=== PATIENT | female | born 1950 | race African-American/Black ===

== ENCOUNTER 2021-12-21 13:53 | Inpatient (IN) ==
[2021-12-21] MEDS ORDERED: ACETAMINOPHEN 325 MG TABLET PO PRN (14:29)
[2021-12-21] MEDS ORDERED: ONDANSETRON 4 MG/2 ML VIAL IV PRN (14:29)
[2021-12-21] MEDS ORDERED: DEXTROSE 50% 25 GM/50 ML VIAL IV PRN (14:29)
[2021-12-21] MEDS ORDERED: POTASSIUM CHLORIDE 20 MEQ TABLET PO PRN (14:29)
[2021-12-21] MEDS ORDERED: MAGNESIUM SULF RIDER 4 GM/100 ML PREMIX IV PRN (14:29)
[2021-12-21] MEDS ORDERED: traMADol 50 MG TABLET PO PRN (14:29)
[2021-12-21] MEDS ORDERED: POTASSIUM CHLORIDE RIDER 10 MEQ/100 ML PREMIX IV PRN (14:29)
[2021-12-21] MEDS ORDERED: MAGNESIUM SULF RIDER 2 GM/50 ML PREMIX IV PRN (14:29)
[2021-12-21] MEDS ORDERED: GLUCAGON 1 MG VIAL IM PRN (14:29)
[2021-12-21] MEDS ORDERED: DEXTROSE 10% 250 ML BAG IV PRN (14:44)
[2021-12-21] MEDS: ALBUTEROL/IPRATROPIUM 3 ML NEB RESP TX SCH ×3 (16:10→23:50)
[2021-12-21] MEDS: methylPREDNISolone SOD SUC 40 MG/1 ML VIAL IV SCH (18:13)
[2021-12-21] MEDS: SODIUM CHLORIDE 0.9% 1,000 ML IV SCH (18:13)
[2021-12-21] MEDS: ENOXAPARIN 30 MG/0.3 ML SYRINGE SUBCUT SCH (18:14)
[2021-12-21] MEDS: cefTRIAXone 1,000 MG in SODIUM CHLORIDE 0.9% 100 ML IV SCH (18:15)
[2021-12-21] MEDS: PANTOPRAZOLE 40 MG TABLET PO SCH (18:16)
[2021-12-21] MEDS: INSULIN REGULAR 100 UNIT/ML SUBCUT SCH ×2 (18:16→22:08)
[2021-12-21] MEDS: AZITHROMYCIN INJ 500 MG in SODIUM CHLORIDE 0.9% 250 ML IV SCH (19:02)
[2021-12-21] MEDS: DOCUSATE SODIUM 100 MG CAPSULE PO SCH (22:09)
[2021-12-22] MEDS: ALBUTEROL/IPRATROPIUM 3 ML NEB RESP TX SCH ×6 (03:35→23:56)
[2021-12-22] MEDS: SODIUM CHLORIDE 0.9% 1,000 ML IV SCH ×3 (04:46→14:06)
[2021-12-22] MEDS: methylPREDNISolone SOD SUC 40 MG/1 ML VIAL IV SCH ×2 (04:47→16:39)
[2021-12-22 05:08] LABS: Basophils % 0.1 % (0.0-0.8); Hematocrit 29.4 VOL% (35.7-47.0); Hemoglobin 9.3 GM/DL (12.0-16.0); Immature Granulocytes % 0.6 %; Immature Granulocytes Absolute 0.05 #; Lymphocytes # 0.6 10*3/uL (1.4-4.0); Lymphocytes % 7.3 % (21.3-54.2); Mean Corpuscular HGB Conc 31.6 GM/DL (32-36); Mean Corpuscular Volume 91.3 FL (87-102); Mean Platelet Volume 11.3 FL (9.6-12.0); Monocytes # 0.2 10*3/uL (0.11-0.8); Monocytes % 2.3 % (1.7-12.7); Neutrophils % 89.7 % (38.7-73.9); Platelet Count 172 T/CUMM (130-400); Red Blood Count 3.22 MC/CUMM (3.8-5.5); Red Cell Distribution Width 13.2 % (9.3-17.3); White Blood Count 8.3 T/CUMM (4-12)
[2021-12-22 05:30] LABS: Albumin 2.3 G/DL (3.4-5.0); Bilirubin,Total 0.6 MG/DL (0.20-1.00); Calcium 8.1 MG/DL (8.5-10.1); Osmolality,Calculated 289.5 MOS/KG (273-304); Potassium 3.8 MMOL/L (3.5-5.1); Total Protein 6.6 G/DL (6.4-8.2)
[2021-12-22] MEDS: DOCUSATE SODIUM 100 MG CAPSULE PO SCH ×2 (09:39→20:44)
[2021-12-22] MEDS: PANTOPRAZOLE 40 MG TABLET PO SCH (09:39)
[2021-12-22] MEDS: INSULIN REGULAR 100 UNIT/ML SUBCUT SCH ×4 (09:41→20:41)
[2021-12-22] MEDS ORDERED: BENZONATATE 100 MG CAPSULE PO PRN (12:37)
[2021-12-22] MEDS ORDERED: glipiZIDE 10 MG TABLET PO SCH (13:00)
[2021-12-22] MEDS: CETIRIZINE 10 MG TABLET PO SCH (14:04)
[2021-12-22] MEDS: cefTRIAXone 1,000 MG in SODIUM CHLORIDE 0.9% 100 ML IV SCH (16:38)
[2021-12-22] MEDS: ENOXAPARIN 30 MG/0.3 ML SYRINGE SUBCUT SCH (16:40)
[2021-12-22] MEDS: AZITHROMYCIN INJ 500 MG in SODIUM CHLORIDE 0.9% 250 ML IV SCH (18:20)
[2021-12-22] MEDS ORDERED: GLUCAGON 1 MG VIAL IM PRN (23:20)
[2021-12-22] MEDS ORDERED: DEXTROSE 50% 25 GM/50 ML VIAL IV PRN (23:20)
[2021-12-22] MEDS ORDERED: INSULIN GLARGINE 100 UNIT/ML SUBCUT SCH (23:30)
[2021-12-23] MEDS: hydrALAZINE 20 MG/1 ML VIAL IV PRN ×2 (00:24→12:51)
[2021-12-23] MEDS: SODIUM CHLORIDE 0.9% 1,000 ML IV SCH ×3 (02:01→15:12)
[2021-12-23] MEDS: ALBUTEROL/IPRATROPIUM 3 ML NEB RESP TX SCH ×6 (02:52→23:20)
[2021-12-23] MEDS ORDERED: INSULIN REGULAR 100 UNIT/ML SUBCUT STA (04:41)
[2021-12-23] MEDS: methylPREDNISolone SOD SUC 40 MG/1 ML VIAL IV SCH ×2 (05:02→15:14)
[2021-12-23 05:13] LABS: Basophils % 0.1 % (0.0-0.8); Hematocrit 28.8 VOL% (35.7-47.0); Hemoglobin 9.6 GM/DL (12.0-16.0); Immature Granulocytes % 1.1 %; Immature Granulocytes Absolute 0.15 #; Lymphocytes # 1.1 10*3/uL (1.4-4.0); Lymphocytes % 8.4 % (21.3-54.2); Mean Corpuscular HGB Conc 33.3 GM/DL (32-36); Mean Corpuscular Volume 88.6 FL (87-102); Mean Platelet Volume 11.4 FL (9.6-12.0); Monocytes # 1.1 10*3/uL (0.11-0.8); Neutrophils % 82.4 % (38.7-73.9); Platelet Count 247 T/CUMM (130-400); Red Blood Count 3.25 MC/CUMM (3.8-5.5); Red Cell Distribution Width 13.4 % (9.3-17.3); White Blood Count 13.6 T/CUMM (4-12)
[2021-12-23 05:33] LABS: Alanine Aminotransferase 108 U/L (13-56); Albumin 2.4 G/DL (3.4-5.0); Alkaline Phosphatase 134 U/L (45-117); Aspartate Amino Transferase 56 U/L (0-37); Bilirubin,Indirect 0.3 MG/DL (0.0-1.0); Bilirubin,Total < 0.39 MG/DL (0.20-1.00); Blood Urea Nitrogen 32 MG/DL (7-18); Calcium 8.5 MG/DL (8.5-10.1); Carbon Dioxide 20 MMOL/L (21-32); Chloride 105 MMOL/L (98-107); Glucose 486 MG/DL (74-106); Osmolality,Calculated 292.5 MOS/KG (273-304); Potassium 3.8 MMOL/L (3.5-5.1); Sodium 132 MMOL/L (136-145); Total Protein 6.5 G/DL (6.4-8.2)
[2021-12-23 06:11] LABS: Hepatitis B Core IgM Quant 0.08 Index; Hepatitis B Surface Ag Quant < 0.10 Index; Hepatitis B Surface Ag Result Non-Reactive (NonReactive); Hepatitis C Virus Ab Quant 0.06 Index; Hepatitis C Virus Ab Result Non-Reactive (NonReactive)
[2021-12-23] MEDS: INSULIN GLARGINE 100 UNIT/ML SUBCUT SCH ×2 (09:11→20:24)
[2021-12-23] MEDS: INSULIN REGULAR 100 UNIT/ML SUBCUT SCH ×4 (09:11→21:00)
[2021-12-23] MEDS: DOCUSATE SODIUM 100 MG CAPSULE PO SCH ×2 (09:13→20:22)
[2021-12-23] MEDS: CETIRIZINE 10 MG TABLET PO SCH (09:13)
[2021-12-23] MEDS: PANTOPRAZOLE 40 MG TABLET PO SCH (09:13)
[2021-12-23] MEDS: glipiZIDE 10 MG TABLET PO SCH ×2 (09:13→20:22)
[2021-12-23] MEDS: LOSARTAN 50 MG TABLET PO SCH (09:42)
[2021-12-23] MEDS: ENOXAPARIN 30 MG/0.3 ML SYRINGE SUBCUT SCH (15:12)
[2021-12-23] MEDS: cefTRIAXone 1,000 MG in SODIUM CHLORIDE 0.9% 100 ML IV SCH (15:13)
[2021-12-23] MEDS: AZITHROMYCIN INJ 500 MG in SODIUM CHLORIDE 0.9% 250 ML IV SCH (16:07)
[2021-12-24] MEDS: ALBUTEROL/IPRATROPIUM 3 ML NEB RESP TX SCH ×6 (02:42→23:07)
[2021-12-24] MEDS: SODIUM CHLORIDE 0.9% 1,000 ML IV SCH ×2 (03:06→17:05)
[2021-12-24] MEDS: methylPREDNISolone SOD SUC 40 MG/1 ML VIAL IV SCH ×2 (03:06→15:55)
[2021-12-24] MEDS: INSULIN REGULAR 100 UNIT/ML SUBCUT SCH ×4 (08:42→20:03)
[2021-12-24] MEDS: INSULIN GLARGINE 100 UNIT/ML SUBCUT SCH ×2 (08:43→22:40)
[2021-12-24] MEDS: LOSARTAN 50 MG TABLET PO SCH (08:44)
[2021-12-24] MEDS: CETIRIZINE 10 MG TABLET PO SCH (08:44)
[2021-12-24] MEDS: DOCUSATE SODIUM 100 MG CAPSULE PO SCH ×2 (08:44→22:40)
[2021-12-24] MEDS: glipiZIDE 10 MG TABLET PO SCH ×2 (08:45→22:40)
[2021-12-24] MEDS: PANTOPRAZOLE 40 MG TABLET PO SCH (08:45)
[2021-12-24] MEDS ORDERED: guaiFENesin/CODEINE 5 ML LIQUID PO PRN (10:23)
[2021-12-24] MEDS: ENOXAPARIN 30 MG/0.3 ML SYRINGE SUBCUT SCH (15:58)
[2021-12-24] MEDS: cefTRIAXone 1,000 MG in SODIUM CHLORIDE 0.9% 100 ML IV SCH (15:59)
[2021-12-24] MEDS: AZITHROMYCIN INJ 500 MG in SODIUM CHLORIDE 0.9% 250 ML IV SCH (17:28)
[2021-12-25] MEDS: ALBUTEROL/IPRATROPIUM 3 ML NEB RESP TX SCH ×5 (00:07→14:30)
[2021-12-25] MEDS: methylPREDNISolone SOD SUC 40 MG/1 ML VIAL IV SCH (04:21)
[2021-12-25 05:38] LABS: Basophils # 0.1 10*3/uL (0.0-0.2); Basophils % 0.6 % (0.0-0.8); Eosinophils # 0.1 10*3/uL (0.0-0.87); Eosinophils % 0.7 % (0.00-10.9); Hematocrit 32.1 VOL% (35.7-47.0); Hemoglobin 10.2 GM/DL (12.0-16.0); Immature Granulocytes % 6.2 %; Immature Granulocytes Absolute 0.78 #; Lymphocytes # 3.7 10*3/uL (1.4-4.0); Lymphocytes % 29.8 % (21.3-54.2); Mean Corpuscular HGB Conc 31.8 GM/DL (32-36); Mean Corpuscular Volume 90.4 FL (87-102); Mean Platelet Volume 10.9 FL (9.6-12.0); Monocytes # 1.3 10*3/uL (0.11-0.8); Monocytes % 10.2 % (1.7-12.7); Neutrophils % 52.5 % (38.7-73.9); Platelet Count 327 T/CUMM (130-400); Red Blood Count 3.55 MC/CUMM (3.8-5.5); Red Cell Distribution Width 13.8 % (9.3-17.3); White Blood Count 12.5 T/CUMM (4-12)
[2021-12-25 06:02] LABS: Albumin 2.7 G/DL (3.4-5.0); Bilirubin,Total 0.4 MG/DL (0.20-1.00); Calcium 8.6 MG/DL (8.5-10.1); Osmolality,Calculated 292.7 MOS/KG (273-304); Potassium 3.3 MMOL/L (3.5-5.1)
[2021-12-25 06:06] LABS: Eosinophils 1 % (0-10); Lymphocytes 34 % (20-55); Platelet Estimate Normal; Total Cells Counted 100
[2021-12-25] MEDS: INSULIN REGULAR 100 UNIT/ML SUBCUT SCH ×2 (07:51→12:27)
[2021-12-25] MEDS ORDERED: hydroCHLOROthiazide 25 MG TABLET PO SCH (09:00)
[2021-12-25] MEDS: DOCUSATE SODIUM 100 MG CAPSULE PO SCH (09:21)
[2021-12-25] MEDS: INSULIN GLARGINE 100 UNIT/ML SUBCUT SCH (09:21)
[2021-12-25] MEDS: PANTOPRAZOLE 40 MG TABLET PO SCH (09:21)
[2021-12-25] MEDS: CETIRIZINE 10 MG TABLET PO SCH (09:21)
[2021-12-25] MEDS: LOSARTAN 50 MG TABLET PO SCH (09:22)
[2021-12-25] MEDS: glipiZIDE 10 MG TABLET PO SCH (09:22)
[2021-12-25 12:43] VITALS: BP 179/68
[2021-12-25] MEDS: hydrALAZINE 20 MG/1 ML VIAL IV PRN (14:05)
== END 2021-12-25 16:02 | disposition home or self-care (01) | DRG 194 ==
LOC: N.5E
PROVIDERS: ADMIT Family Medicine; ATTEND Family Medicine

== ENCOUNTER 2022-05-22 05:31 | Inpatient (IN) ==
[~2022-05-22 05:31] MED LIST: LACTATED RINGERS 1,000 ML IV SCH
[2022-05-22] MEDS ORDERED: DEXTROSE 50% 25 GM/50 ML SYRINGE IV ONE (06:14)
[2022-05-22] MEDS ORDERED: DEXTROSE 50% 25 GM/50 ML SYRINGE IV STA (06:17)
[2022-05-22] MEDS ORDERED: LIDOCAINE 2% 5 ML VIAL ONE (06:21)
[2022-05-22] MEDS ORDERED: propofoL 200 MG/20 ML VIAL IV ONE (06:21)
[2022-05-22] MEDS ORDERED: buprenorphine HCL 0.3 MG/ML VIAL ONE (06:21)
[2022-05-22] MEDS ORDERED: MIDAZOLAM 2 MG/2 ML VIAL ONE (06:21)
[2022-05-22] MEDS ORDERED: fentaNYL 100 MCG/2 ML VIAL ONE (06:21)
[2022-05-22] MEDS ORDERED: KETAMINE 500 MG/10 ML VIAL ONE (06:21)
[2022-05-22] MEDS ORDERED: BUPIVACAINE SPINAL 0.75% 2 ML AMP SPINAL ONE (06:22)
[2022-05-22] MEDS ORDERED: VANCOMYCIN INJ 1,000 MG in SODIUM CHLORIDE 0.9% 250 ML IV ONE (06:30)
[2022-05-22] MEDS ORDERED: LIDOCAINE 1% 5 ML VIAL ONE (06:33)
[2022-05-22] MEDS ORDERED: DEXAMETHASONE 4 MG/1 ML VIAL ONE (06:33)
[2022-05-22] MEDS ORDERED: ROPIVACAINE 0.5% 30 ML VIAL ONE (06:33)
[2022-05-22 06:50] LABS: Partial Thromboplastin Time 27.6 SECS (23.7-32.9)
[2022-05-22] MEDS ORDERED: ePHEDrine 50 MG/ML VIAL ONE ×2 (07:01→07:57)
[2022-05-22] MEDS ORDERED: CYCLOBENZAPRINE 10 MG TABLET PO PRN (07:09)
[2022-05-22] MEDS ORDERED: ZALEPLON 5 MG CAPSULE PO PRN (07:13)
[2022-05-22] MEDS ORDERED: ONDANSETRON 4 MG/2 ML VIAL IV PRN ×2 (07:13→08:51)
[2022-05-22] MEDS ORDERED: MORPHINE 2 MG/1 ML SYRINGE IV PRN ×2 (07:13)
[2022-05-22] MEDS ORDERED: MAGNESIUM HYDROXIDE SUSP 30 ML UDCUP PO PRN (07:13)
[2022-05-22] MEDS ORDERED: PHENYLEPHRINE 1 MG/10 ML SYRINGE IV ONE ×2 (07:57→08:29)
[2022-05-22] MEDS ORDERED: GLYCOPYRROLATE 0.4 MG/2 ML VIAL ONE (07:57)
[2022-05-22] MEDS ORDERED: ONDANSETRON 4 MG/2 ML VIAL ONE (07:57)
[2022-05-22] MEDS ORDERED: LACTATED RINGERS 1,000 ML IV ONE (07:57)
[2022-05-22] MEDS ORDERED: SODIUM CHLORIDE 0.9% 500 ML IV ONE (07:57)
[2022-05-22] MEDS ORDERED: TRANEXAMIC ACID 1,000 MG/10 ML VIAL ONE (07:57)
[2022-05-22] MEDS: LACTATED RINGERS 1,000 ML IV SCH ×2 (08:40→16:35)
[2022-05-22] MEDS ORDERED: diphenhydrAMINE 50 MG/1 ML VIAL IV PRN (08:51)
[2022-05-22] MEDS ORDERED: HYDROmorphone 1 MG/1 ML SYRINGE IV PRN (08:51)
[2022-05-22] MEDS ORDERED: MEPERIDINE 25 MG/1 ML VIAL IV PRN (08:51)
[2022-05-22] MEDS ORDERED: PROMETHAZINE INJ 25 MG in SODIUM CHLORIDE 0.9% 50 ML IV PRN (08:51)
[2022-05-22] MEDS: ceFAZolin 2,000 MG/50 ML DUPLEX IV SCH ×2 (12:20→20:39)
[2022-05-22] MEDS: DOCUSATE SODIUM 100 MG CAPSULE PO SCH ×2 (12:22→20:40)
[2022-05-22] MEDS: INSULIN LISPRO 100 UNIT/ML SUBCUT SCH ×3 (12:37→20:41)
[2022-05-22] MEDS: hydroCHLOROthiazide 25 MG TABLET PO SCH (14:00)
[2022-05-22] MEDS: LOSARTAN 50 MG TABLET PO SCH (14:01)
[2022-05-22] MEDS: amLODIPine 2.5 MG TABLET PO SCH (14:01)
[2022-05-22] MEDS: PHENOL 1.4% THROAT SPRAY 177 ML BOTTLE PO PRN ×2 (15:27→15:28)
[2022-05-22] MEDS: glipiZIDE 10 MG TABLET PO SCH (16:36)
[2022-05-22] MEDS: diphenhydrAMINE CAP 25 MG CAPSULE PO PRN (20:40)
[2022-05-22] MEDS: FAMOTIDINE 20 MG TABLET PO SCH (20:40)
[2022-05-22] MEDS: LATANOPROST 0.005% OPH SOLN 2.5 ML BOTTLE BOTH EYES SCH (20:42)
[2022-05-22] MEDS: SOTALOL 80 MG TABLET PO SCH (20:42)
[2022-05-23] MEDS: LACTATED RINGERS 1,000 ML IV SCH ×3 (00:35→20:07)
[2022-05-23] MEDS: diphenhydrAMINE CAP 25 MG CAPSULE PO PRN ×3 (02:45→20:52)
[2022-05-23] MEDS: FONDAPARINUX 2.5 MG/0.5 ML SYRINGE SUBCUT SCH (04:35)
[2022-05-23 06:03] LABS: Basophils % 0.3 % (0.0-0.8); Eosinophils % 0.1 % (0.00-10.9); Hematocrit 28.1 VOL% (35.7-47.0); Hemoglobin 9.2 GM/DL (12.0-16.0); Immature Granulocytes % 0.5 %; Immature Granulocytes Absolute 0.05 #; Lymphocytes # 2.3 10*3/uL (1.4-4.0); Lymphocytes % 22.3 % (21.3-54.2); Mean Corpuscular HGB Conc 32.7 GM/DL (32-36); Mean Corpuscular Volume 90.9 FL (87-102); Mean Platelet Volume 11.6 FL (9.6-12.0); Monocytes # 1.4 10*3/uL (0.11-0.8); Monocytes % 13.5 % (1.7-12.7); Neutrophils % 63.3 % (38.7-73.9); Platelet Count 213 T/CUMM (130-400); Red Blood Count 3.09 MC/CUMM (3.8-5.5); Red Cell Distribution Width 13.1 % (9.3-17.3); White Blood Count 10.4 T/CUMM (4-12)
[2022-05-23 06:16] LABS: Calcium 8.1 MG/DL (8.5-10.1); Osmolality,Calculated 285.4 MOS/KG (273-304); Potassium 4.1 MMOL/L (3.5-5.1)
[2022-05-23] MEDS: INSULIN LISPRO 100 UNIT/ML SUBCUT SCH ×4 (07:29→20:52)
[2022-05-23] MEDS: glipiZIDE 10 MG TABLET PO SCH ×2 (08:42→16:04)
[2022-05-23] MEDS: COENZYME Q10 100 MG CAPSULE PO SCH (08:42)
[2022-05-23] MEDS: VITAMIN E 400 UNIT CAPSULE PO SCH (08:42)
[2022-05-23] MEDS: amLODIPine 2.5 MG TABLET PO SCH (08:42)
[2022-05-23] MEDS: hydroCHLOROthiazide 25 MG TABLET PO SCH (08:42)
[2022-05-23] MEDS: LOSARTAN 50 MG TABLET PO SCH (08:43)
[2022-05-23] MEDS: ATORVASTATIN 20 MG TABLET PO SCH (08:43)
[2022-05-23] MEDS: CYANOCOBALAMIN 500 MCG TABLET PO SCH (08:43)
[2022-05-23] MEDS: CHOLECALCIFEROL 1,000 UNIT TABLET PO SCH (08:43)
[2022-05-23] MEDS: DOCUSATE SODIUM 100 MG CAPSULE PO SCH ×2 (08:44→20:52)
[2022-05-23] MEDS: SOTALOL 80 MG TABLET PO SCH ×2 (08:44→20:53)
[2022-05-23] MEDS: INSULIN GLARGINE 100 UNIT/ML SUBCUT SCH (08:44)
[2022-05-23] MEDS: FERROUS SULFATE 325 MG TABLET PO SCH (08:44)
[2022-05-23] MEDS: FOLIC ACID 1 MG TABLET PO SCH (08:44)
[2022-05-23] MEDS: CETIRIZINE 10 MG TABLET PO SCH (08:53)
[2022-05-23] MEDS: FAMOTIDINE 20 MG TABLET PO SCH (20:52)
[2022-05-23] MEDS: LATANOPROST 0.005% OPH SOLN 2.5 ML BOTTLE BOTH EYES SCH (20:57)
[2022-05-24] MEDS: FONDAPARINUX 2.5 MG/0.5 ML SYRINGE SUBCUT SCH (05:50)
[2022-05-24] MEDS: INSULIN LISPRO 100 UNIT/ML SUBCUT SCH ×2 (07:53→12:49)
[2022-05-24] MEDS: VITAMIN E 400 UNIT CAPSULE PO SCH (08:25)
[2022-05-24] MEDS: ATORVASTATIN 20 MG TABLET PO SCH (08:26)
[2022-05-24] MEDS: CHOLECALCIFEROL 1,000 UNIT TABLET PO SCH (08:26)
[2022-05-24] MEDS: DOCUSATE SODIUM 100 MG CAPSULE PO SCH (08:26)
[2022-05-24] MEDS: glipiZIDE 10 MG TABLET PO SCH (08:26)
[2022-05-24] MEDS: FERROUS SULFATE 325 MG TABLET PO SCH (08:26)
[2022-05-24] MEDS: CETIRIZINE 10 MG TABLET PO SCH (08:26)
[2022-05-24] MEDS: COENZYME Q10 100 MG CAPSULE PO SCH (08:26)
[2022-05-24] MEDS: LOSARTAN 50 MG TABLET PO SCH (08:26)
[2022-05-24] MEDS: hydroCHLOROthiazide 25 MG TABLET PO SCH (08:26)
[2022-05-24] MEDS: amLODIPine 2.5 MG TABLET PO SCH (08:26)
[2022-05-24] MEDS: FOLIC ACID 1 MG TABLET PO SCH (08:26)
[2022-05-24] MEDS: SOTALOL 80 MG TABLET PO SCH (08:27)
[2022-05-24] MEDS: CYANOCOBALAMIN 500 MCG TABLET PO SCH (08:30)
[2022-05-24 08:44] LABS: Basophils # 0.1 10*3/uL (0.0-0.2); Basophils % 0.6 % (0.0-0.8); Eosinophils # 0.4 10*3/uL (0.0-0.87); Eosinophils % 3.6 % (0.00-10.9); Hematocrit 24.7 VOL% (35.7-47.0); Hemoglobin 8.1 GM/DL (12.0-16.0); Immature Granulocytes % 0.6 %; Immature Granulocytes Absolute 0.06 #; Lymphocytes # 2.9 10*3/uL (1.4-4.0); Lymphocytes % 29.1 % (21.3-54.2); Mean Corpuscular HGB Conc 32.8 GM/DL (32-36); Mean Corpuscular Volume 91.1 FL (87-102); Mean Platelet Volume 11.9 FL (9.6-12.0); Monocytes # 1.3 10*3/uL (0.11-0.8); Monocytes % 12.6 % (1.7-12.7); Neutrophils % 53.5 % (38.7-73.9); Platelet Count 176 T/CUMM (130-400); Red Blood Count 2.71 MC/CUMM (3.8-5.5); Red Cell Distribution Width 13.2 % (9.3-17.3); White Blood Count 10.1 T/CUMM (4-12)
[2022-05-24 09:04] LABS: Albumin 3.1 G/DL (3.4-5.0); Bilirubin,Direct 0.16 MG/DL (0.0-0.20); Bilirubin,Indirect 0.3 MG/DL (0.0-1.0); Bilirubin,Total 0.5 MG/DL (0.20-1.00); Total Protein 6.1 G/DL (6.4-8.2)
[2022-05-24] MEDS: INSULIN GLARGINE 100 UNIT/ML SUBCUT SCH (09:10)
[2022-05-24 11:45] VITALS: BP 146/75
== END 2022-05-24 12:57 | disposition home health service (06) | DRG 470 ==
LOC: N.OR 05:31 → N.SDSINP 05:32 → N.3E 09:29
PROVIDERS: ADMIT Orthopaedic Surgery; ATTEND Orthopaedic Surgery

== ENCOUNTER 2022-05-28 11:42 | Observation (INO) ==
[2022-05-28] MEDS ORDERED: ONDANSETRON 4 MG/2 ML VIAL IV STA (12:18)
[2022-05-28] MEDS ORDERED: HYDROmorphone 1 MG/1 ML SYRINGE IV STA (12:18)
[2022-05-28 14:02] LABS: Basophils # 0.1 10*3/uL (0.0-0.2); Basophils % 0.5 % (0.0-0.8); Eosinophils # 0.1 10*3/uL (0.0-0.87); Eosinophils % 1.1 % (0.00-10.9); Hematocrit 25.6 VOL% (35.7-47.0); Hemoglobin 8.4 GM/DL (12.0-16.0); Immature Granulocytes % 0.5 %; Immature Granulocytes Absolute 0.06 #; Lymphocytes # 1.5 10*3/uL (1.4-4.0); Lymphocytes % 13.6 % (21.3-54.2); Mean Corpuscular HGB Conc 32.8 GM/DL (32-36); Mean Corpuscular Volume 93.1 FL (87-102); Mean Platelet Volume 10.9 FL (9.6-12.0); Monocytes # 0.8 10*3/uL (0.11-0.8); Monocytes % 7.1 % (1.7-12.7); Neutrophils % 77.2 % (38.7-73.9); Platelet Count 228 T/CUMM (130-400); Red Blood Count 2.75 MC/CUMM (3.8-5.5); Red Cell Distribution Width 13.8 % (9.3-17.3); White Blood Count 11.2 T/CUMM (4-12)
[2022-05-28 14:19] LABS: Calcium 8.5 MG/DL (8.5-10.1); Osmolality,Calculated 286.5 MOS/KG (273-304); Potassium 4.5 MMOL/L (3.5-5.1)
[2022-05-28] MEDS ORDERED: MAGNESIUM HYDROXIDE SUSP 30 ML UDCUP PO PRN (15:00)
[2022-05-28] MEDS ORDERED: CYCLOBENZAPRINE 10 MG TABLET PO PRN (15:03)
[2022-05-28] MEDS: glipiZIDE 10 MG TABLET PO SCH (16:52)
[2022-05-28] MEDS: SODIUM CHLORIDE 0.9% 1,000 ML IV SCH (16:52)
[2022-05-28] MEDS: SOTALOL 80 MG TABLET PO SCH (20:40)
[2022-05-28] MEDS ORDERED: LATANOPROST 0.005% OPH SOLN 2.5 ML BOTTLE BOTH EYES SCH (21:00)
[2022-05-28] MEDS ORDERED: ATORVASTATIN 10 MG TABLET PO SCH (21:00)
[2022-05-28] MEDS ORDERED: FAMOTIDINE 20 MG TABLET PO SCH (21:00)
[2022-05-28] MEDS ORDERED: ENOXAPARIN 40 MG/0.4 ML SYRINGE SUBCUT SCH (21:00)
[2022-05-28 23:45] LABS: Basophils % 0.3 % (0.0-0.8); Eosinophils # 0.1 10*3/uL (0.0-0.87); Eosinophils % 1.1 % (0.00-10.9); Hematocrit 26.2 VOL% (35.7-47.0); Hemoglobin 8.2 GM/DL (12.0-16.0); Immature Granulocytes % 0.8 %; Immature Granulocytes Absolute 0.08 #; Lymphocytes # 2.2 10*3/uL (1.4-4.0); Lymphocytes % 20.8 % (21.3-54.2); Mean Corpuscular HGB Conc 31.3 GM/DL (32-36); Mean Corpuscular Volume 93.2 FL (87-102); Mean Platelet Volume 11.2 FL (9.6-12.0); Monocytes # 1.1 10*3/uL (0.11-0.8); Monocytes % 10.1 % (1.7-12.7); Neutrophils % 66.9 % (38.7-73.9); Platelet Count 242 T/CUMM (130-400); Red Blood Count 2.81 MC/CUMM (3.8-5.5); Red Cell Distribution Width 13.9 % (9.3-17.3); White Blood Count 10.5 T/CUMM (4-12)
[2022-05-29 00:16] LABS: Albumin 2.8 G/DL (3.4-5.0); Bilirubin,Total 1.1 MG/DL (0.20-1.00); Calcium 8.2 MG/DL (8.5-10.1); Osmolality,Calculated 286.5 MOS/KG (273-304); Potassium 4.2 MMOL/L (3.5-5.1); Total Protein 6.3 G/DL (6.4-8.2)
[2022-05-29] MEDS: SODIUM CHLORIDE 0.9% 1,000 ML IV SCH (01:26)
[2022-05-29 06:21] LABS: Basophils % 0.5 % (0.0-0.8); Eosinophils # 0.2 10*3/uL (0.0-0.87); Hemoglobin 7.3 GM/DL (12.0-16.0); Immature Granulocytes % 0.6 %; Immature Granulocytes Absolute 0.05 #; Lymphocytes # 2.5 10*3/uL (1.4-4.0); Lymphocytes % 30.2 % (21.3-54.2); Mean Corpuscular HGB Conc 31.7 GM/DL (32-36); Mean Corpuscular Volume 94.3 FL (87-102); Mean Platelet Volume 10.8 FL (9.6-12.0); Monocytes # 0.9 10*3/uL (0.11-0.8); Monocytes % 11.3 % (1.7-12.7); Neutrophils % 55.4 % (38.7-73.9); Platelet Count 223 T/CUMM (130-400); Red Blood Count 2.44 MC/CUMM (3.8-5.5); Red Cell Distribution Width 13.8 % (9.3-17.3); White Blood Count 8.3 T/CUMM (4-12)
[2022-05-29] MEDS: SOTALOL 80 MG TABLET PO SCH (08:38)
[2022-05-29] MEDS: glipiZIDE 10 MG TABLET PO SCH (08:39)
[2022-05-29] MEDS: INSULIN REGULAR 100 UNIT/ML SUBCUT SCH ×2 (08:52→11:56)
[2022-05-29] MEDS ORDERED: LOSARTAN 50 MG TABLET PO SCH (09:00)
[2022-05-29] MEDS ORDERED: COENZYME Q10 100 MG CAPSULE PO SCH (09:00)
[2022-05-29] MEDS ORDERED: INSULIN GLARGINE 100 UNIT/ML SUBCUT SCH (09:00)
[2022-05-29] MEDS ORDERED: FERROUS SULFATE 325 MG TABLET PO SCH (09:00)
[2022-05-29] MEDS ORDERED: FOLIC ACID 1 MG TABLET PO SCH (09:00)
[2022-05-29] MEDS ORDERED: hydroCHLOROthiazide 25 MG TABLET PO SCH (09:00)
[2022-05-29] MEDS ORDERED: PANTOPRAZOLE 40 MG TABLET PO SCH (09:00)
[2022-05-29] MEDS ORDERED: VITAMIN E 400 UNIT PO SCH (09:00)
[2022-05-29] MEDS ORDERED: CYANOCOBALAMIN 500 MCG TABLET PO SCH (09:00)
[2022-05-29] MEDS ORDERED: amLODIPine 2.5 MG TABLET PO SCH (09:00)
[2022-05-29] MEDS ORDERED: OMEGA 3 ACID ETHYL ESTERS 1 GM CAPSULE PO SCH (09:00)
[2022-05-29] MEDS ORDERED: CHOLECALCIFEROL 1,000 UNIT TABLET PO SCH (09:00)
[2022-05-29 11:13] VITALS: BP 138/55
== END 2022-05-29 12:11 | disposition home or self-care (01) ==
LOC: N.ED 11:42 → N.3E 11:42
PROVIDERS: ADMIT Family Medicine; ATTEND Family Medicine